=== PATIENT | female | born 1975 | race Caucasian/White ===

== ENCOUNTER 2023-06-12 12:36 | Observation (INO) | payer OTHER ==
[2023-06-12] MEDS ORDERED: THIAMINE 100 MG/ML 2 ML VIAL IM STA (13:49)
[2023-06-12] MEDS ORDERED: LORazepam 2 MG/ML INJ IV PRN ×3 (13:49)
--- NOTE | 2023-06-12 13:53 | ED ---
General Adult HPI - General Chief complaint: Chest Pain Stated complaint: chest pain Time Seen by Provider: 06/12/23 12:42 Source: EMS Mode of arrival: EMS Limitations: altered mental status - History of Present Illness Initial comments: Dictation was produced using [employer] dictation software. please excuse any grammatical, word or spelling errors. Chief Complaint: 48-year-old male presents to the emergency department for chest pain History of Present Illness: This is a 40-year-old female she presents to the emergency department from [facility] detox facility. She is try to check in for detox treatment for alcohol and heroin abuse. She was there and told staff that she has chest pain. Apparently she was at an outside emergency department 2 weeks ago and was told that she had a heart attack. Mother at the bedside states that she was there for seizures. She did be admitted for couple days. Patient drinks alcohol daily. Boyfriend is at the bedside states that last alcohol intake was 40 minutes ago. Patient states that she has no history of heart attack. The ROS documented in this emergency department record has been reviewed and confirmed by me. Those systems with pertinent positive or negative responses have been documented in the HPI. All other systems are other negative and/or noncontributory. - Related Data Home Medications Medication Instructions Recorded Confirmed Amitriptyline HCl [Elavil] 50 mg PO HS 06/12/23 06/12/23 Cephalexin [Keflex] 500 mg PO BID 06/12/23 06/12/23 Nicotine 21Mg/24Hr Patch [Habitrol] 1 patch TRANSDERM DAILY 06/12/23 06/12/23 levETIRAcetam [Keppra] 500 mg PO BID 06/12/23 06/12/23 valACYclovir HCL [Valtrex] 1,000 mg PO BID 06/12/23 06/12/23 Allergies Allergy/AdvReac Type Severity Reaction Status Date / Time No Known Allergies Allergy Verified 06/12/23 15:13 Review of Systems ROS Statement: Those systems with pertinent positive or pertinent negative responses have been documented in the HPI. ROS Other: All systems not noted in ROS Statement are negative. Past Medical History Past Medical History: Diabetes Mellitus, Hypertension, Myocardial Infarction ([place]) Additional Past Medical History / Comment(s): etoh withdrawal seizures Past Surgical History: No Surgical Hx Reported Past Psychological History: Depression Smoking Status: Current every day smoker Past Alcohol Use History: Abuse, Heavy Past Drug Use History: Heroin General Exam - General Exam Comments Initial Comments: PHYSICAL EXAM: General Impression: Alert and oriented x3, not in acute distress, inebriated HEENT: Normocephalic atraumatic, extra-ocular movements intact, pupils equal and reactive to light bilaterally, mucous membranes moist. Cardiovascular: Heart regular rate and rhythm Chest: Able to complete full sentences, no retractions, no tachypnea Abdomen: abdomen soft, non-tender, non-distended, no organomegaly Musculoskeletal: Pulses present and equal in all extremities, no peripheral edema Motor: no focal deficits noted Neurological: CN II-XII grossly intact, no focal motor or sensory deficits noted Skin: Intact with no visualized rashes Psych: Normal affect and mood Limitations: altered mental status Course Vital Signs 06/12/23 12:42 Temperature 97 F L Pulse Rate 92 Respiratory 18 Rate Blood Pressure 115/75 O2 Sat by Pulse 96 Oximetry EKG Findings - EKG Comments: EKG Findings:: My EKG interpretation: Ventricular rate 88, sinus rhythm,. Interval 90, QRS 97, QTc 447. No ME prolongation, no QTC prolongation, no ST or T-wave changes noted. Overall, this EKG is unremarkable Medical Decision Making - Medical Decision Making Was pt. sent in by a medical professional or institution (, PA, WIRELINE FIELD OPERATOR, urgent c are, hospital, or shelter...) When possible be specific @ -No Did you speak to anyone other than the patient for history (EMS, parent, family, police, friend...)? What history was obtained from this source @ -No Did you review nursing and triage notes (agree or disagree)? Why? @ -I reviewed and agree with nursing and triage notes Were old charts reviewed (outside hosp., previous admission, EMS record, old EKG, old radiological studies, urgent care reports/EKG's, shelter records)? Report findings @ -No old charts were reviewed Differential Diagnosis (chest pain, altered mental status, abdominal pain women, abdominal pain men, vaginal bleeding, musculoskeletal, weakness, fever, dyspnea, syncope, headache, dizziness, GI bleed, back pain, seizure, CVA, palpatations, mental health)? @ -Differential Chest Pain: Stable Angina, Unstable Angina, STEMI, NSTEMI Aortic Dissection, Pneumothorax, Musculoskeletal, Esophageal Spasm GERD, Cholecystitis, Pancreatitis, Zoster, this is not meant to be an all-inclusive list. EKG interpreted by me (3pts min.). @ -See above X-rays interpreted by me (1pt min.). @ -None done CT interpreted by me (1pt min.). @ -None done U/S interpreted by me (1pt. min.). @ -None done What testing was considered but not performed or refused? (CT, X-rays, U/S, labs)? Why? @ -None What meds were considered but not given or refused? Why? @ -None Did you discuss the management of the patient with other professionals (pr ofessionals i.e. , PA, WIRELINE FIELD OPERATOR, lab, RT, psych nurse, social services specialist, heel lift gouger, teacher, senior officer, manager of case)? Give summary @ -Discussed with hospitalist for admission Was smoking cessation discussed for >3mins.? @ -No Was critical care preformed (if so, how long)? @ -No Were there social determinants of health that impacted care today? How? (Homelessness, low income, unemployed, alcoholism, drug addiction, transportation, low edu. Level, literacy, decrease access to med. care, half-way, rehab)? @ -No Was there de-escalation of care discussed even if they declined (Discuss DNR or withdrawal of care, Hospice)? DNR status @ -No What co-morbidities impacted this encounter? (DM, HTN, Smoking, COPD, CAD, C ancer, CVA, ARF, Chemo, Hep., AIDS, mental health diagnosis, sleep apnea, morbid obesity)? @ -None Was patient admitted / discharged? Hospital course, mention meds given and route, prescriptions, significant lab abnormalities, going to OR and other pertinent info. @ -48-year-old alcoholic female presents emergency department for cardiac mc arance. She allegedly was seen recently in emergency per for heart attack. Vital signs stable. EKG is unremarkable. Labs negative. Troponin negative. Alcohol level 392. She'll be admitted for cardiac monitoring. Undiagnosed new problem with uncertain prognosis? @ -No Drug Therapy requiring intensive monitoring for toxicity (Heparin, Nitro, Insulin, Cardizem)? @ -No Were any procedures done? @ -No Diagnosis/symptom? Acute, or Chronic, or Acute on Chronic? Uncomplicated (without systemic symptoms) or Complicated (systemic symptoms)? @ -Chest pain Side effects of treatment? @ -No Exacerbation, Progression, or Severe Exacerbation? @ -No Poses a threat to life or bodily function? How? (Chest pain, USA, ME, pneumonia, PE, COPD, DKA, ARF, appy, cholecystitis, CVA, Diverticulitis, Homicidal, Suicidal, threat to staff... and all critical care pts) @ -yes - Lab Data Result diagrams: 06/12/23 13:53 06/12/23 13:53 Lab Results 06/12/23 06/12/23 06/12/23 Range/Units 13:53 13:53 13:53 WBC 5.7 (3.8-10.6) k/uL RBC 4.00 (3.80-5.40) m/uL Hgb 13.5 (11.4-16.0) gm/dL Hct 39.2 (34.0-46.0) % MCV 97.9 (80.0-100.0) fL MCH 33.7 (25.0-35.0) pg MCHC 34.5 (31.0-37.0) g/dL RDW 12.9 (11.5-15.5) % Plt Count 317 (150-450) k/uL MPV 7.1 Neutrophils % 67 % Lymphocytes % 27 % Monocytes % 3 % Eosinophils % 1 % Basophils % 1 % Neutrophils # 3.8 (1.3-7.7) k/uL Lymphocytes # 1.6 (1.0-4.8) k/uL Monocytes # 0.2 (0-1.0) k/uL Eosinophils # 0.1 (0-0.7) k/uL Basophils # 0.0 (0-0.2) k/uL PT (10.0-12.5) sec INR (<1.2) APTT (22.0-30.0) sec Sodium 140 (137-145) mmol/L Potassium 4.0 (3.5-5.1) mmol/L Chloride 103 (98-107) mmol/L Carbon Dioxide 23 (22-30) mmol/L Anion Gap 14 mmol/L BUN 9 (7-17) mg/dL Creatinine 0.39 L (0.52-1.04) mg/dL Est GFR (CKD-EPI)AfAm >90 (>60 ml/min/1.73 sqM) Est GFR (CKD-EPI)NonAf >90 (>60 ml/min/1.73 sqM) Glucose 105 H (74-99) mg/dL Calcium 8.8 (8.4-10.2) mg/dL Total Bilirubin 0.3 (0.2-1.3) mg/dL AST 40 H (14-36) U/L ALT 27 (4-34) U/L Alkaline Phosphatase 54 (38-126) U/L Troponin I <0.012 (0.000-0.034) ng/mL Total Protein 7.3 (6.3-8.2) g/dL Albumin 4.4 (3.5-5.0) g/dL Serum Alcohol 392 H* mg/dL 06/12/23 Range/Units 14:22 WBC (3.8-10.6) k/uL RBC (3.80-5.40) m/uL Hgb (11.4-16.0) gm/dL Hct (34.0-46.0) % MCV (80.0-100.0) fL MCH (25.0-35.0) pg MCHC (31.0-37.0) g/dL RDW (11.5-15.5) % Plt Count (150-450) k/uL MPV Neutrophils % % Lymphocytes % % Monocytes % % Eosinophils % % Basophils % % Neutrophils # (1.3-7.7) k/uL Lymphocytes # (1.0-4.8) k/uL Monocytes # (0-1.0) k/uL Eosinophils # (0-0.7) k/uL Basophils # (0-0.2) k/uL PT 10.2 (10.0-12.5) sec INR 0.9 (<1.2) APTT 27.3 (22.0-30.0) sec Sodium (137-145) mmol/L Potassium (3.5-5.1) mmol/L Chloride (98-107) mmol/L Carbon Dioxide (22-30) mmol/L Anion Gap mmol/L BUN (7-17) mg/dL Creatinine (0.52-1.04) mg/dL Est GFR (CKD-EPI)AfAm (>60 ml/min/1.73 sqM) Est GFR (CKD-EPI)NonAf (>60 ml/min/1.73 sqM) Glucose (74-99) mg/dL Calcium (8.4-10.2) mg/dL Total Bilirubin (0.2-1.3) mg/dL AST (14-36) U/L ALT (4-34) U/L Alkaline Phosphatase (38-126) U/L Troponin I (0.000-0.034) ng/mL Total Protein (6.3-8.2) g/dL Albumin (3.5-5.0) g/dL Serum Alcohol mg/dL Disposition Clinical Impression: Chest pain Disposition: ADMITTED IP TO THIS HOSP Condition: Fair Referrals: None,Stated [Primary Care Provider] - 1-2 days Decision Time: 16:15
[2023-06-12 14:01] LABS: Basophils % (A) 1 %; Eosinophils # (A) 0.1 k/uL (0-0.7); Eosinophils % (A) 1 %; HCT 39.2 % (34.0-46.0); HGB 13.5 gm/dL (11.4-16.0); Lymphocytes # (A) 1.6 k/uL (1.0-4.8); Lymphocytes % (A) 27 %; MCH 33.7 pg (25.0-35.0); MCHC 34.5 g/dL (31.0-37.0); MCV 97.9 fL (80.0-100.0); Mean Platelet Volume 7.1; Monocytes # (A) 0.2 k/uL (0-1.0); Monocytes % (A) 3 %; Neutrophils # (A) 3.8 k/uL (1.3-7.7); Neutrophils % (A) 67 %; Platelet Count 317 k/uL (150-450); RDW 12.9 % (11.5-15.5); WBC 5.7 k/uL (3.8-10.6)
[2023-06-12 14:24] LABS: ALT 27 U/L (4-34); AST 40 U/L (14-36); African American GFR (CKD) >90 (>60 ml/min/1.73 sqM); Albumin 4.4 g/dL (3.5-5.0); Alkaline Phosphatase 54 U/L (38-126); Anion Gap 14 mmol/L; Blood Urea Nitrogen 9 mg/dL (7-17); Calcium 8.8 mg/dL (8.4-10.2); Carbon Dioxide 23 mmol/L (22-30); Chloride 103 mmol/L (98-107); Glucose 105 mg/dL (74-99); Non-African American GFR(CKD) >90 (>60 ml/min/1.73 sqM); Sodium 140 mmol/L (137-145); Total Bilirubin 0.3 mg/dL (0.2-1.3); Total Protein 7.3 g/dL (6.3-8.2)
[2023-06-12 14:42] LABS: Alcohol 392 mg/dL
[2023-06-12 15:56] LABS: INR 0.9 (<1.2); Partial Thromboplastin Time 27.3 sec (22.0-30.0); Prothrombin Time 10.2 sec (10.0-12.5)
[2023-06-12] MEDS ORDERED: NITROGLYCERIN SL TABS 0.4 MG TAB SUBLINGUAL PRN (16:09)
[2023-06-12] MEDS ORDERED: AMITRIPTYLINE HCL 50 MG TAB PO SCH (21:00)
[2023-06-12] MEDS ORDERED: CEPHALEXIN 500 MG CAP PO SCH (21:00)
[2023-06-12] MEDS: levETIRAcetam 500 MG TAB PO SCH (21:18)
[2023-06-12] MEDS: NICOTINE 21MG/24HR PATCH TRANSDERM SCH (21:18)
[2023-06-12] MEDS: valACYclovir HCL 1,000 MG TABLET PO SCH (21:28)
--- NOTE | 2023-06-12 22:32 | P.HPIM ---
History of Present Illness H&P Date: 06/12/23 Chief Complaint: Chest Pain Patient is a 48-year-old female with a known history of hypertension, diabetes type 2 not on any medications, depression, current everyday smoker and severe alcohol abuse was sent from [facility] detox facility due to complaints of chest pain. Patient went to facility voluntarily for detox and alcohol in heroin abuse. Patient told staff that she was having mid retrosternal chest pain, sharp with 7 out of 10 in severity without any radiation. Patient also told that she was at the emergency room in different hospital facility and was told she had AK and also was treated for seizures. This happened about 2 weeks ago and was admitted to hospital for couple of days. Patient denies any complaints of chest pain upon arrival to the hospital. Patient is also intoxicated on admission. On admission blood pressure 115/75 pulse 92 respiration 18 and pulse ox 96% on room air. Laboratory data showed sodium 140 potassium 4.0 chloride 103 bicarb is 23 BUN 9 and creatinine 0.39 and blood sugar 105 and AST 40 ALT 27 alk phos 57 and troponin x2 negative and serum alcohol level is 392. EKG showed sinus rhythm. Review of Systems ROS unobtainable: due to mental status Past Medical History Past Medical History: Diabetes Mellitus, Hypertension, Myocardial Infarction (AK) Additional Past Medical History / Comment(s): etoh withdrawal seizures Past Surgical History: No Surgical Hx Reported Past Psychological History: Depression Smoking Status: Current every day smoker Past Alcohol Use History: Abuse, Heavy Past Drug Use History: Heroin Medications and Allergies Home Medications Medication Instructions Recorded Confirmed Type Amitriptyline HCl [Elavil] 50 mg PO HS 06/12/23 06/12/23 History Cephalexin [Keflex] 500 mg PO BID 06/12/23 06/12/23 History Nicotine 21Mg/24Hr Patch [Habitrol] 1 patch TRANSDERM DAILY 06/12/23 06/12/23 History levETIRAcetam [Keppra] 500 mg PO BID 06/12/23 06/12/23 History valACYclovir HCL [Valtrex] 1,000 mg PO BID 06/12/23 06/12/23 History Allergies Allergy/AdvReac Type Severity Reaction Status Date / Time No Known Allergies Allergy Verified 06/12/23 15:13 Physical Exam Vitals: Vital Signs Temp Pulse Resp BP Pulse Ox 06/12/23 12:42 97 F L 92 18 115/75 96 Intake and Output 06/12/23 06/12/23 06/12/23 06:59 14:59 22:59 Other: Weight 50.802 kg PHYSICAL EXAMINATION: Patient is lying in the bed ,no acute distress, intoxicated HEENT: Normocephalic. Neck is supple. Pupils reactive. Nostrils clear. Oral cavity is moist. Neck reveals no JVD, carotid bruits, or thyromegaly. CHEST EXAMINATION: Trachea is central. Symmetrical expansion. Lung swartz clear to auscultation and percussion. CARDIAC: Normal S1, S2 with no gallops. No murmurs ABDOMEN: Soft. Bowel sounds present. Nontender. No organomegaly. No abdominal bruits. Extremities: reveal no edema. No clubbing or cyanosis Neurologically awake, alert. drowsy and lethargic. No focal deficits noted Skin: No rash or skin lesions. Psychiatric: could not be assesed, Musculoskeletal: No joint swelling or deformity. Results CBC & Chem 7: 06/12/23 13:53 06/12/23 13:53 Labs: Abnormal Lab Results - Last 24 Hours (Table) 06/12/23 Range/Units 13:53 Creatinine 0.39 L (0.52-1.04) mg/dL Glucose 105 H (74-99) mg/dL AST 40 H (14-36) U/L Serum Alcohol 392 H* mg/dL Thrombosis Risk Factor Assmnt - DVT/VTE Prophylaxis DVT/VTE Prophylaxis: Pharmacologic Prophylaxis ordered Assessment and Plan Assessment: Acute alcohol intoxication on admission with a alcohol level 392 Atypical chest pain. Rule out ACS. Possible gastritis/GI related. Recent history of AK as per patient at different hospital facility History of alcohol withdrawal seizures Depression Currently everyday smoker Severe alcohol abuse GI and DVT prophylaxis. Plan: Continue with telemetry monitoring. Serial EKG and troponin x3. Monitor for alcohol withdrawal symptoms. Continue thiamine and multivitamins and other home medications including Keppra. Patient will be continued IV hydration with normal saline. Cardiology consult for further evaluation. We will obtain medical records from outside hospital facility. Follow-up closely.
[2023-06-12] MEDS: FAMOTIDINE 20 MG TAB PO SCH (22:40)
[2023-06-12] MEDS: SODIUM CHLORIDE 0.9% 1,000 ML IV SCH (23:04)
[2023-06-12] MEDS: HEPARIN SODIUM,PORCINE 5,000 UNIT/ML 1 ML VIAL SQ SCH (23:07)
--- NOTE | 2023-06-13 08:46 | XR ---
EXAMINATION TYPE: XR chest 1V DATE OF EXAM: 06/13/2023 COMPARISON: NONE HISTORY: Chest pain TECHNIQUE: Single frontal view of the chest is obtained. FINDINGS: There is no focal air space opacity, pleural effusion, or pneumothorax seen. The cardiac silhouette size is within normal limits. The osseous structures are intact. Hyperexpansion of the l ungs correlate for asthma or COPD. IMPRESSION: No acute process.
[2023-06-13] MEDS: valACYclovir HCL 1,000 MG TABLET PO SCH (08:53)
[2023-06-13] MEDS: HEPARIN SODIUM,PORCINE 5,000 UNIT/ML 1 ML VIAL SQ SCH (08:53)
[2023-06-13] MEDS: FAMOTIDINE 20 MG TAB PO SCH (08:53)
[2023-06-13] MEDS: NICOTINE 21MG/24HR PATCH TRANSDERM SCH (08:54)
[2023-06-13] MEDS: levETIRAcetam 500 MG TAB PO SCH (08:54)
[2023-06-13 08:58] LABS: Basophils # (A) 0.07 X 10*3/uL (0.00-0.10); Basophils % (A) 1.5 %; Eosinophils # (A) 0.13 X 10*3/uL (0.04-0.35); Eosinophils % (A) 2.8 %; HCT 36.8 % (37.2-46.3); HGB 12.3 d/dL (12.0-15.0); Lymphocytes # (A) 1.57 X 10*3/uL (0.90-5.00); Lymphocytes % (A) 33.7 %; MCH 32.2 pg (27.0-32.0); MCHC 33.4 d/dL (32.0-37.0); MCV 96.3 FL (80.0-97.0); Mean Platelet Volume 9.8 FL (9.5-12.2); Monocytes # (A) 0.35 X 10*3/uL (0.20-1.00); Monocytes % (A) 7.5 %; NRBC Per 100 WBC 0 X 10*3/uL (0.00-0.01); Neutrophils # (A) 2.53 X 10*3/uL (1.80-7.70); Neutrophils % (A) 54.3 %; Platelet Count 293 X 10*3/uL (140-440); RBC 3.82 X 10*6/uL (4.10-5.20); RDW 12.9 % (11.5-14.5); WBC 4.66 X 10*3/uL (4.50-10.00)
[2023-06-13] MEDS ORDERED: ASPIRIN 325 MG TAB PO SCH (09:00)
[2023-06-13] MEDS ORDERED: THIAMINE 100 MG TAB PO SCH (09:00)
[2023-06-13 09:30] LABS: Blood Urea Nitrogen 10.2 mg/dL (9.0-27.0); Calcium 9.3 mg/dL (8.7-10.3); Carbon Dioxide 25.9 mmol/L (21.6-31.8); Chloride 103 mmol/L (96-109); Chol/HDL Ratio 2.62 Ratio; Glucose 81 mg/dL (70-110); LDL Cholesterol,Calculated 113.5 mg/dL (0.0-131.0); Potassium 4.2 mmol/L (3.5-5.5); Sodium 141 mmol/L (135-145)
--- NOTE | 2023-06-13 09:42 | P.CRDCN ---
History of Present Illness Consult date: 06/13/23 Consult reason: chest pain History of present illness: History of present illness: This is a 48-year-old female with past medical history of seizure disorder, tobacco use and dependence, hypertension. We have been asked to evaluate the patient for chest pain and clearance for Damon. The patient states that she had some middle of the chest chest pain and had one episode previously to that. No pain at this time, no lower extremity edema, no shortness of breath no cough. She is a history of smoker of 2 packs per day down to 2 cigarettes per day. She has a long-standing history of alcohol abuse. She has had 2 seizures in the past related to alcohol withdrawal. Patient has not had any previous cardiac workup. She denies drug use. she EKG sinus rhythm Chest x-ray: no acute process WBC 4.6, hemoglobin 12.3 and platelet count 293. Electrolytes are normal. Creatinine 0.5. Blood sugar 81. Troponin negative 3. Serum alcohol 392. Triglycerides 147, cholesterol 231, LDL 113, HDL 88. Home cardiac medications: none Review Of Systems: At the time of my evaluation: Constitutional: No fever, no chills. No weakness, fatigue or lethargy. EENT: No headache. No dizziness. Lungs: No shortness of breath, cough, no sputum production. No wheezing. Cardiovascular: No chest pain, no lower extremity edema. No palpitations. No paroxysmal nocturnal dyspnea. No orthopnea. No lightheadedness or dizziness. No syncopal episodes. Abdominal: No abdominal pain. No nausea, vomiting. No diarrhea. No constipation. No bloody or tarry stools. Musculoskeletal: No myalgias. No muscle weakness, no frequent falls. Integumentary: No wounds. No rash. No unusual bruising. Neurologic: No aphasia. No facial droop. No change in mentation. Physical examination: Gen: This is a 48-year-old female resting in bed and appears to be comfortable and in no acute distress VS: reviewed HEENT: Head is atraumatic, normocephalic. Pupils equal, round. Sclerae is anicteric. NECK: Supple. No JVD. LUNGS: Clear to auscultation. No wheezes or rhonchi. No intercostal retractions. HEART: Regular rate and rhythm. No murmur. ABDOMEN: Soft No tenderness. EXTREMITIES: No pedal edema. No calf tenderness. NEUROLOGICAL: Patient is awake, alert and oriented x3. Assessment: Alcohol intoxication Atypical chest pain, noncardiac most likely musculoskeletal History of seizures Tobacco use and dependence Plan: Obtain 2-D echocardiogram and Doppler study to assess cardiac structure and function If echocardiogram is unremarkable, patient is cleared for discharge. Thank you kindly for this consultation. Nurse practitioner note has been reviewed, I agree with documented findings and plan of care. Patient was seen and examined. Past Medical History Past Medical History: Diabetes Mellitus, Hypertension, Myocardial Infarction ([place]) Additional Past Medical History / Comment(s): etoh withdrawal seizures Last Myocardial Infarction Date:: n/a History of Any Multi-Drug Resistant Organisms: None Reported Past Surgical History: No Surgical Hx Reported Past Psychological History: Depression Smoking Status: Current every day smoker Past Alcohol Use History: Abuse, Heavy Past Drug Use History: Heroin Medications and Allergies Home Medications Medication Instructions Recorded Confirmed Type Amitriptyline HCl [Elavil] 50 mg PO HS 06/12/23 06/12/23 History Cephalexin [Keflex] 500 mg PO BID 06/12/23 06/12/23 History Nicotine 21Mg/24Hr Patch [Habitrol] 1 patch TRANSDERM DAILY 06/12/23 06/12/23 History levETIRAcetam [Keppra] 500 mg PO BID 06/12/23 06/12/23 History valACYclovir HCL [Valtrex] 1,000 mg PO BID 06/12/23 06/12/23 History Allergies Allergy/AdvReac Type Severity Reaction Status Date / Time No Known Allergies Allergy Verified 06/12/23 15:13 Physical Exam Vitals: Vital Signs Temp Pulse Pulse Resp BP BP Pulse Ox 06/13/23 03:14 98.2 F 98 16 119/69 97 06/12/23 21:56 98.1 F 80 16 114/74 98 06/12/23 21:00 88 18 118/70 97 06/12/23 12:42 97 F L 92 18 115/75 96 Intake and Output 06/12/23 06/13/23 06/13/23 22:59 06:59 14:59 Other: # Voids 0 # Bowel Movements 1 Weight 50.802 kg Results 06/13/23 05:46 06/13/23 05:46 Cardiac Enzymes 06/12/23 06/12/23 06/12/23 Range/Units 13:53 13:53 17:36 AST 40 H (14-36) U/L Troponin I <0.012 <0.012 (0.000-0.034) ng/mL 06/12/23 Range/Units 21:18 AST (14-36) U/L Troponin I <0.012 (0.000-0.034) ng/mL Coagulation 06/12/23 Range/Units 14:22 PT 10.2 (10.0-12.5) sec APTT 27.3 (22.0-30.0) sec CBC 06/12/23 Range/Units 13:53 WBC 5.7 (3.8-10.6) k/uL RBC 4.00 (3.80-5.40) m/uL Hgb 13.5 (11.4-16.0) gm/dL Hct 39.2 (34.0-46.0) % Plt Count 317 (150-450) k/uL Comprehensive Metabolic Panel 06/12/23 Range/Units 13:53 Sodium 140 (137-145) mmol/L Potassium 4.0 (3.5-5.1) mmol/L Chloride 103 (98-107) mmol/L Carbon Dioxide 23 (22-30) mmol/L BUN 9 (7-17) mg/dL Creatinine 0.39 L (0.52-1.04) mg/dL Glucose 105 H (74-99) mg/dL Calcium 8.8 (8.4-10.2) mg/dL AST 40 H (14-36) U/L ALT 27 (4-34) U/L Alkaline Phosphatase 54 (38-126) U/L Total Protein 7.3 (6.3-8.2) g/dL Albumin 4.4 (3.5-5.0) g/dL Current Medications Generic Name Dose Route Start Last Admin Trade Name Freq PRN Reason Stop Dose Admin Amitriptyline HCl 50 mg 06/12/23 21:00 06/12/23 21:28 Amitriptyline Hcl 50 Mg Tab PO 50 mg HS IVETH Administration Aspirin 325 mg 06/13/23 09:00 Aspirin 325 Mg Tab PO DAILY IVETH Famotidine 20 mg 06/12/23 21:30 06/12/23 22:40 Famotidine 20 Mg Tab PO 20 mg BID IVETH Administration Heparin Sodium (Porcine) 5,000 unit 06/13/23 00:00 06/12/23 23:07 Heparin Sodium,Porcine 5,000 Unit/Ml 1 Ml Vial SQ 5,000 unit Q8HR IVETH Administration Sodium Chloride 1,000 mls @ 75 mls/hr 06/12/23 22:30 06/12/23 23:04 Saline 0.9% IV 75 mls/hr .[id number] IVETH Administration Levetiracetam 500 mg 06/12/23 21:00 06/12/23 21:18 Levetiracetam 500 Mg Tab PO 500 mg BID IVETH Administration Lorazepam 1 mg 06/12/23 13:49 Lorazepam 2 Mg/Ml Inj IV Q1HR PRN CIWA 10 to 15 Lorazepam 1 mg 06/12/23 13:49 Lorazepam 2 Mg/Ml Inj IV Q2HR PRN CIWA 8 or 9 Lorazepam 2 mg 06/12/23 13:49 Lorazepam 2 Mg/Ml Inj IV 06/14/23 13:50 Q10M PRN CIWA 16 or higher Nicotine 1 patch 06/12/23 18:45 06/12/23 21:18 Nicotine 21mg/24hr Patch TRANSDERM 1 patch DAILY IVETH Administration Nitroglycerin 0.4 mg 06/12/23 16:09 Nitroglycerin Sl Tabs 0.4 Mg Tab SUBLINGUAL Q5M PRN Chest Pain Thiamine HCl 100 mg 06/13/23 09:00 Thiamine 100 Mg Tab PO DAILY IVETH Valacyclovir HCl 1,000 mg 06/12/23 21:00 06/12/23 21:28 Valacyclovir Hcl 1,000 Mg Tablet PO 1,000 mg BID IVETH Administration Protocol Intake and Output 06/12/23 06/13/23 06/13/23 22:59 06:59 14:59 Other: # Voids 0 # Bowel Movements 1 Weight 50.802 kg 06/12/23 13:53 06/12/23 13:53
[2023-06-13] MEDS ORDERED: LORazepam 0.5 MG TAB PO PRN (10:39)
[2023-06-13] MEDS: SODIUM CHLORIDE 0.9% 1,000 ML IV SCH (10:47)
--- NOTE | 2023-06-13 13:10 | CA ---
Transthoracic Echo Report Name: Felecia Rice Age: 48 Gender: F : 1975 Exam Date: 06/13/2023 10:35 Exam Location: [facility] Ht (in): 64 Wt (lb): 112 Ordering Physician: Laura Chavarria Attending/Referring Phys: [id number], Aura Supervisor [employer] Jeanne Link RDCS Procedure CPT: Indications: LVF Cardiac Hx: Technical Quality: Fair Contrast 1: Total Dose (mL): Contrast 2: Total Dose (mL): MEASUREMENTS (Male / Female) Normal Values 2D ECHO LV Diastolic Diameter PLAX 3.6 cm 4.2 - 5.9 / 3.9 - 5.3 cm LV Systolic Diameter PLAX 1.8 cm IVS Diastolic Thickness 1.1 cm 0.6 - 1.0 / 0.6 - 0.9 cm LVPW Diastolic Thickness 1.1 cm 0.6 - 1.0 / 0.6 - 0.9 cm LV Relative Wall Thickness 0.6 RV Internal Dim ED PLAX 2.7 cm LA Volume 59.9 cm??? 18 - 58 / 22 - 52 cm??? LA Volume Index 39.7 cm???/m??? 16 - 28 cm???/m??? M-MODE Aortic Root Diameter MM 2.6 cm LA Systolic Diameter MM 2.9 cm LA Ao Ratio MM 1.1 AV Cusp Separation MM 1.8 cm DOPPLER AV Peak Velocity 121.8 cm/s AV Peak Gradient 5.9 mmHg AV Mean Velocity 94.8 cm/s AV Mean Gradient 3.9 mmHg AV Velocity Time Integral 20.6 cm LVOT Peak Velocity 112.9 cm/s LVOT Peak Gradient 5.1 mmHg LVOT Velocity Time Integral 20.7 cm MV Area PHT 4.6 cm??? Mitral E Point Velocity 82.4 cm/s Mitral A Point Velocity 98.5 cm/s Mitral E to A Ratio 0.8 MV Deceleration Time 166.6 ms MV E' Velocity 8.8 cm/s Mitral E to MV E' Ratio 9.4 TR Peak Velocity 168.3 cm/s TR Peak Gradient 11.3 mmHg Right Ventricular Systolic Press 16.3 mmHg FINDINGS Left Ventricle Mildly increased left ventricular wall thickness. Left ventricular cavity size normal. Normal left ventricular systolic function with no obvious regional wall motion abnormalities. Left ventricular ejection fraction is estimated at 55-60 %. Right Ventricle Normal right ventricular size and function. Right ventricular systolic pressure within normal limits. Right Atrium Normal right atrial size. Left Atrium Mildly increased left atrial volume. Mitral Valve Structurally normal mitral valve. No mitral stenosis. Mild mitral regurgitation. Aortic Valve Trileaflet aortic valve. No aortic valve stenosis or regurgitation. Tricuspid Valve Structurally normal tricuspid valve. Mild tricuspid regurgitation. Pulmonic Valve Structurally normal pulmonic valve. Trace pulmonic regurgitation. Pericardium No pericardial effusion. Aorta Normal size aortic root and proximal ascending aorta. CONCLUSIONS 1. Normal left ventricular size and systolic function 2. Mild mitral and tricuspid regurgitation Previewed by: Dr. Chelle Bah MD (Electronically Signed) Final Date: 13 June 2023 13:09
[2023-06-13 14:32] VITALS: BP 143/88; PULSE 79; RESP 12; TEMP 98.1
== END 2023-06-13 15:26 | disposition home or self-care (01) ==
LOC: EC 12:36 → 6NMEDSUR 16:09
PROVIDERS: ADMIT Internal Medicine; ATTEND Internal Medicine
DX: R07.89 Other chest pain (principal); F10.229 Alcohol dependence with intoxication, unspecified; Y90.8 Blood alcohol level of 240 mg/100 ml or more; I10 Essential (primary) hypertension; E11.9 Type 2 diabetes mellitus without complications; F11.10 Opioid abuse, uncomplicated; F17.210 Nicotine dependence, cigarettes, uncomplicated; F32.A Depression, unspecified; I25.2 Old myocardial infarction; Z86.69 Personal history of other diseases of the nervous system and sense organs; Z79.899 Other long term (current) drug therapy
CPT/HCPCS: 96372 ×3; 99285; 36415; 93005; 93306; 80061; 80053; 80048; 84484; 85025 ×2; 85610; 85730; 71045; G0378 ×2; G0480; S4990 ×2; J1644 ×2; J3411; 80320